=== PATIENT | male | born 1960 | race African-American/Black ===

== ENCOUNTER 2020-08-03 05:17 | Observation (INO) | payer MEDICARE, MEDICAID ==
[~2020-08-03] VITALS: Ht 170.1 cm; Wt 59.0 kg
[~2020-08-03 05:17] MED LIST: AMOXICILLIN500 MG PO; CALCIUM 500 + D1 TAB PO; CARAFATE1 G1 PO; CHLORPROMAZINE10 MG PO; CIPRO500 MG PO; ENSURE CLINICA; HYDROCODONE BIT1 T11 PO; IBUPRIN200 MG; LEVAQUIN750 MG PO; MIRALAX17 GM/DOSE PO; MIRALAX17 GM/PACK PO; MULTIPLE VITAMI1 CAP PO; NKHM; PEN-VK500 MG PO; PENICILLIN VK500 MG PO; PROMETHAZINE12.5 MG RC; PROTONIX40 MG PO; REGLAN5 MG PO; SEPTDS PO; VICODIN 5/500 505 MG PO; ZINC220 MG PO
[2020-08-03 05:23] VITALS: BP 128/58
[2020-08-03 06:02] LABS: HEMATOCRIT 43.4 % (42.0-52.0); LYMPH # 0.5 10*3/uL (1.3-4.4); LYMPH % 21.3 % (27.0-41.0); MEAN CELL VOLUME 102.4 fl (80.0-94.0); MEAN CORPUSCULAR HGB 34.7 pg (27.0-31.0); MEAN CORPUSCULAR HGB CONC 33.9 g/dl (33.0-37.0); MEAN PLATELET VOLUME 9.1 fl (9.6-12.3); MONO # 0.3 10*3/uL (0.1-1.0); MONO % 12.2 % (3.0-9.0); NEUT # 1.7 10*3/uL (2.3-7.9); NEUT % 65.7 % (47.0-73.0); PLATELET COUNT AUTOMATED 269 10*3/uL (130-400); RED BLOOD COUNT 4.24 10*6/uL (4.50-5.90); WHITE BLOOD COUNT 2.5 10*3/uL (4.8-10.8)
[2020-08-03 06:07] LABS: BILIRUBIN Negative (Negative); BLOOD Negative (Negative); CLARITY Clear (Clear); COLOR Yellow (Yellow); GLUCOSE Negative (Negative); KETONE 1+ (Negative); LEUKO ESTERASE Trace (Negative); NITRITE Negative (Negative); PH 5.5 (4.5-8.0); SPECIFIC GRAVITY 1.025 (1.001-1.030)
[2020-08-03 06:19] LABS: BACTERIA 4+; EPITHELIAL CELLS 0-2
[2020-08-03 06:27] LABS: ALBUMIN 3.3 gm/dl (3.1-4.5); ALKALINE PHOSPHATASE 103 U/L (45-117); BUN 14 mg/dl (7-24); CHLORIDE 102 mmol/L (98-107); CREATININE 1.12 mg/dL (0.70-1.30); POTASSIUM 3.8 mmol/L (3.5-5.1); SGOT/AST 49 IU/L (3-35); SGPT/ALT 89 U/L (12-78); SODIUM 135 mmol/L (136-145); TOTAL PROTEIN 7.3 gm/dL (6.4-8.2)
[2020-08-03 08:26] VITALS: BP 96/60
[2020-08-03] MEDS ORDERED: THORAZINE100 MG PO (09:28)
[2020-08-03] MEDS ORDERED: PEPCID20 MG PO (09:29)
[2020-08-03] MEDS ORDERED: CARAFATE1 G1 PO (09:29)
[2020-08-03 13:18] VITALS: BP 101/62
[2020-08-03] MEDS ORDERED: CIPRO500 MG PO ×2 (14:46)
== END 2020-08-03 16:54 | disposition home or self-care (01) ==
LOC: ED 05:17 → EDHOLD 07:12
PROVIDERS: Student in an Organized Health Care Education/Training Program; ADMIT Emergency Medicine; ATTEND Emergency Medicine
DX: N39.0 Urinary tract infection, site not specified (principal); R41.82 Altered mental status, unspecified; F79 Unspecified intellectual disabilities; E87.1 Hypo-osmolality and hyponatremia; R73.9 Hyperglycemia, unspecified; R74.01 Elevation of levels of liver transaminase levels; E44.0 Moderate protein-calorie malnutrition; D72.819 Decreased white blood cell count, unspecified; Z98.890 Other specified postprocedural states

== ENCOUNTER 2020-08-08 14:12 | Emergency (ER) | payer MEDICARE, MEDICAID ==
[~2020-08-08 14:12] MED LIST changes: +PEPCID20 MG PO; +THORAZINE100 MG PO
[2020-08-08 14:54] LABS: BASO % 0.2 % (0.0-1.0); EOS % 0.2 % (1.0-4.0); LYMPH # 0.9 10*3/uL (1.3-4.4); LYMPH % 17.7 % (27.0-41.0); MEAN CELL VOLUME 102.3 fl (80.0-94.0); MEAN CORPUSCULAR HGB 34.8 pg (27.0-31.0); MEAN PLATELET VOLUME 8.7 fl (9.6-12.3); MONO # 0.5 10*3/uL (0.1-1.0); MONO % 9.1 % (3.0-9.0); NEUT # 3.6 10*3/uL (2.3-7.9); NEUT % 72.6 % (47.0-73.0); PLATELET COUNT AUTOMATED 401 10*3/uL (130-400); RED BLOOD COUNT 4.69 10*6/uL (4.50-5.90)
[2020-08-08 15:05] LABS: ACT PARTIAL THROMBO TIME 30.8 SECONDS (20.0-32.1)
[2020-08-08 15:08] LABS: ALBUMIN 3.1 gm/dl (3.1-4.5); ALKALINE PHOSPHATASE 118 U/L (45-117); BUN 15 mg/dl (7-24); CHLORIDE 102 mmol/L (98-107); CREATININE 1.28 mg/dL (0.70-1.30); POTASSIUM 3.8 mmol/L (3.5-5.1); SGOT/AST 41 IU/L (3-35); SGPT/ALT 55 U/L (12-78); SODIUM 137 mmol/L (136-145); TOTAL PROTEIN 7.9 gm/dL (6.4-8.2)
[2020-08-08] MEDS ORDERED: AVPAK AZITHROM250 MG PO ×2 (16:05)
== END 2020-08-08 16:35 | disposition home or self-care (01) ==
LOC: ED 14:12
PROVIDERS: Family Medicine
DX: J18.9 Pneumonia, unspecified organism (principal); R79.1 Abnormal coagulation profile; Z20.828 Contact with and (suspected) exposure to other viral communicable diseases; Z88.1 Allergy status to other antibiotic agents; Z79.899 Other long term (current) drug therapy

== ENCOUNTER 2020-10-10 18:08 | Inpatient (IN) | payer MEDICARE, MEDICAID ==
[~2020-10-10] VITALS: Ht 165.1 cm; Wt 49.0 kg
[~2020-10-10 18:08] MED LIST changes: +AVPAK AZITHROM250 MG PO
[2020-10-10 18:17] VITALS: BP 128/88
[2020-10-10 19:46] LABS: BASO % 0.2 % (0.0-1.0); EOS % 0.2 % (1.0-4.0); HEMATOCRIT 48.1 % (42.0-52.0); LYMPH # 1.7 10*3/uL (1.3-4.4); MEAN CELL VOLUME 106.7 fl (80.0-94.0); MEAN CORPUSCULAR HGB CONC 32.8 g/dl (33.0-37.0); MONO # 0.8 10*3/uL (0.1-1.0); MONO % 5.9 % (3.0-9.0); NEUT # 11.5 10*3/uL (2.3-7.9); NEUT % 81.1 % (47.0-73.0); PLATELET COUNT AUTOMATED 441 10*3/uL (130-400); RED BLOOD COUNT 4.51 10*6/uL (4.50-5.90); RED CELL DISTRI WIDTH 14.2 % (0-14.5); WHITE BLOOD COUNT 14.2 10*3/uL (4.8-10.8)
[2020-10-10 20:00] VITALS: BP 102/55
[2020-10-10 20:01] LABS: ALBUMIN 3.1 gm/dl (3.1-4.5); ALKALINE PHOSPHATASE 95 U/L (45-117); BUN 25 mg/dl (7-24); CHLORIDE 107 mmol/L (98-107); CREATININE 1.21 mg/dL (0.70-1.30); LIPASE 83 U/L (73-393); POTASSIUM 4.4 mmol/L (3.5-5.1); SGOT/AST 9 IU/L (3-35); SGPT/ALT 22 U/L (12-78); SODIUM 141 mmol/L (136-145); TOTAL PROTEIN 8.4 gm/dL (6.4-8.2)
[2020-10-10 20:14] LABS: BILIRUBIN Negative (Negative); BLOOD Negative (Negative); CLARITY Clear (Clear); COLOR Yellow (Yellow); GLUCOSE Negative (Negative); KETONE Trace (Negative); LEUKO ESTERASE Trace (Negative); NITRITE Negative (Negative); SPECIFIC GRAVITY >= 1.030 (1.001-1.030)
[2020-10-10 20:33] LABS: BACTERIA 1+; MUCOUS 1+; RBC 16-20 rbc/hpf (0-2)
[2020-10-10 22:21] VITALS: BP 112/71
[2020-10-10] MEDS ORDERED: PROTONIX IV40 MG IV (22:42)
[2020-10-10] MEDS ORDERED: CARAFATE1 G1 PO (22:43)
[2020-10-10 23:00] VITALS: BP 102/55
[2020-10-11 06:34] LABS: BASO % 0.2 % (0.0-1.0); EOS # 0.1 10*3/uL (0.0-0.4); EOS % 0.6 % (1.0-4.0); HEMATOCRIT 42.3 % (42.0-52.0); LYMPH % 15.9 % (27.0-41.0); MEAN CELL VOLUME 107.4 fl (80.0-94.0); MEAN CORPUSCULAR HGB CONC 32.6 g/dl (33.0-37.0); MONO # 0.8 10*3/uL (0.1-1.0); MONO % 6.3 % (3.0-9.0); NEUT # 9.3 10*3/uL (2.3-7.9); NEUT % 75.6 % (47.0-73.0); PLATELET COUNT AUTOMATED 442 10*3/uL (130-400); RED BLOOD COUNT 3.94 10*6/uL (4.50-5.90); RED CELL DISTRI WIDTH 14.1 % (0-14.5); WHITE BLOOD COUNT 12.3 10*3/uL (4.8-10.8)
[2020-10-11 07:08] LABS: ALBUMIN 2.5 gm/dl (3.1-4.5); ALKALINE PHOSPHATASE 82 U/L (45-117); BUN 16 mg/dl (7-24); CHLORIDE 109 mmol/L (98-107); CREATININE 1.06 mg/dL (0.70-1.30); FREE T4 0.99 ng/dl (0.76-1.46); POTASSIUM 4.3 mmol/L (3.5-5.1); SGOT/AST 10 IU/L (3-35); SGPT/ALT 16 U/L (12-78); SODIUM 143 mmol/L (136-145)
[2020-10-11 07:35] LABS: VITAMIN D, 25-HYDROXY 35.1 ng/mL (30-100)
[2020-10-11 08:00] VITALS: BP 106/60
[2020-10-11 12:00] VITALS: BP 136/88
[2020-10-11 16:00] VITALS: BP 81/64
[2020-10-11 20:00] VITALS: BP 117/81
[2020-10-12] VITALS: BP 125/65
[2020-10-12 07:02] LABS: BUN 10 mg/dl (7-24); CHLORIDE 106 mmol/L (98-107); CREATININE 0.99 mg/dL (0.70-1.30); SODIUM 142 mmol/L (136-145)
[2020-10-12 07:08] LABS: BASO % 0.3 % (0.0-1.0); EOS # 0.1 10*3/uL (0.0-0.4); EOS % 0.8 % (1.0-4.0); HEMATOCRIT 43.1 % (42.0-52.0); LYMPH % 27.9 % (27.0-41.0); MEAN CELL VOLUME 105.4 fl (80.0-94.0); MEAN CORPUSCULAR HGB 34.7 pg (27.0-31.0); MEAN CORPUSCULAR HGB CONC 32.9 g/dl (33.0-37.0); MONO # 0.6 10*3/uL (0.1-1.0); MONO % 7.6 % (3.0-9.0); NEUT # 4.6 10*3/uL (2.3-7.9); NEUT % 62.8 % (47.0-73.0); PLATELET COUNT AUTOMATED 466 10*3/uL (130-400); RED BLOOD COUNT 4.09 10*6/uL (4.50-5.90); RED CELL DISTRI WIDTH 13.8 % (0-14.5); WHITE BLOOD COUNT 7.3 10*3/uL (4.8-10.8)
[2020-10-12 08:00] VITALS: BP 114/66
[2020-10-12 12:00] VITALS: BP 130/82
[2020-10-12 16:00] VITALS: BP 128/82
[2020-10-12 20:00] VITALS: BP 113/70
[2020-10-13] VITALS: BP 100/65
[2020-10-13 06:39] LABS: BASO % 0.5 % (0.0-1.0); EOS # 0.2 10*3/uL (0.0-0.4); EOS % 2.7 % (1.0-4.0); HEMATOCRIT 44.3 % (42.0-52.0); LYMPH # 2.3 10*3/uL (1.3-4.4); LYMPH % 36.3 % (27.0-41.0); MEAN CELL VOLUME 104.2 fl (80.0-94.0); MEAN CORPUSCULAR HGB 34.4 pg (27.0-31.0); MEAN PLATELET VOLUME 8.7 fl (9.6-12.3); MONO # 0.7 10*3/uL (0.1-1.0); MONO % 10.8 % (3.0-9.0); NEUT # 3.1 10*3/uL (2.3-7.9); NEUT % 48.9 % (47.0-73.0); PLATELET COUNT AUTOMATED 462 10*3/uL (130-400); RED BLOOD COUNT 4.25 10*6/uL (4.50-5.90); RED CELL DISTRI WIDTH 13.6 % (0-14.5); WHITE BLOOD COUNT 6.3 10*3/uL (4.8-10.8)
[2020-10-13 06:58] LABS: BUN 9 mg/dl (7-24); CHLORIDE 104 mmol/L (98-107); CREATININE 1.01 mg/dL (0.70-1.30); POTASSIUM 3.9 mmol/L (3.5-5.1); SODIUM 142 mmol/L (136-145)
[2020-10-13 08:00] VITALS: BP 113/80
[2020-10-13 12:00] VITALS: BP 120/74
[2020-10-13 16:00] VITALS: BP 118/62
[2020-10-13 20:00] VITALS: BP 114/74
[2020-10-14] VITALS: BP 120/88
[2020-10-14 06:22] LABS: BUN 9 mg/dl (7-24); CHLORIDE 106 mmol/L (98-107); POTASSIUM 3.6 mmol/L (3.5-5.1); SODIUM 141 mmol/L (136-145)
[2020-10-14 06:30] LABS: BASO % 0.6 % (0.0-1.0); EOS # 0.2 10*3/uL (0.0-0.4); EOS % 2.8 % (1.0-4.0); HEMATOCRIT 44.3 % (42.0-52.0); LYMPH # 2.4 10*3/uL (1.3-4.4); LYMPH % 33.8 % (27.0-41.0); MEAN CELL VOLUME 102.3 fl (80.0-94.0); MEAN CORPUSCULAR HGB 34.6 pg (27.0-31.0); MEAN CORPUSCULAR HGB CONC 33.9 g/dl (33.0-37.0); MEAN PLATELET VOLUME 8.6 fl (9.6-12.3); MONO # 0.7 10*3/uL (0.1-1.0); MONO % 9.6 % (3.0-9.0); NEUT # 3.8 10*3/uL (2.3-7.9); NEUT % 52.6 % (47.0-73.0); PLATELET COUNT AUTOMATED 492 10*3/uL (130-400); RED BLOOD COUNT 4.33 10*6/uL (4.50-5.90); RED CELL DISTRI WIDTH 13.4 % (0-14.5); WHITE BLOOD COUNT 7.1 10*3/uL (4.8-10.8)
[2020-10-14 08:00] VITALS: BP 100/85
[2020-10-14 12:00] VITALS: BP 110/67
[2020-10-14 16:00] VITALS: BP 118/89
[2020-10-15] VITALS: BP 130/63
[2020-10-15 08:00] VITALS: BP 135/76
[2020-10-15 12:00] VITALS: BP 142/83
[2020-10-15 16:00] VITALS: BP 172/80
[2020-10-15 20:00] VITALS: BP 131/77
[2020-10-16] VITALS (9 sets, daily range): BP systolic 85–151; BP diastolic 46–90
[2020-10-17] VITALS: BP 143/89
[2020-10-17 06:11] LABS: BASO % 0.7 % (0.0-1.0); EOS # 0.2 10*3/uL (0.0-0.4); EOS % 4.4 % (1.0-4.0); HEMATOCRIT 44.6 % (42.0-52.0); LYMPH # 1.8 10*3/uL (1.3-4.4); LYMPH % 45.4 % (27.0-41.0); MEAN CELL VOLUME 101.8 fl (80.0-94.0); MEAN CORPUSCULAR HGB 34.2 pg (27.0-31.0); MEAN CORPUSCULAR HGB CONC 33.6 g/dl (33.0-37.0); MEAN PLATELET VOLUME 8.3 fl (9.6-12.3); MONO # 0.4 10*3/uL (0.1-1.0); MONO % 10.4 % (3.0-9.0); NEUT # 1.6 10*3/uL (2.3-7.9); NEUT % 38.9 % (47.0-73.0); PLATELET COUNT AUTOMATED 480 10*3/uL (130-400); RED BLOOD COUNT 4.38 10*6/uL (4.50-5.90); RED CELL DISTRI WIDTH 13.3 % (0-14.5); WHITE BLOOD COUNT 4.1 10*3/uL (4.8-10.8)
[2020-10-17 06:45] LABS: BUN 10 mg/dl (7-24); CHLORIDE 105 mmol/L (98-107); CREATININE 1.11 mg/dL (0.70-1.30); POTASSIUM 4.1 mmol/L (3.5-5.1); SODIUM 139 mmol/L (136-145)
[2020-10-17 08:00] VITALS: BP 108/73
[2020-10-17 12:00] VITALS: BP 120/83
[2020-10-17] MEDS ORDERED: AMOXICILLIN500 M2 PO ×2 (14:48)
== END 2020-10-17 16:19 | disposition home or self-care (01) | DRG 871 ==
LOC: ED 18:08 → EDHOLD 21:59 → 5E 21:59
PROVIDERS: Internal Medicine; Physician Assistant; ADMIT Student in an Organized Health Care Education/Training Program; ATTEND Student in an Organized Health Care Education/Training Program
PROC: BD1BYZZ Fluoroscopy of Mouth/Oropharynx using Other Contrast (ICD-10-PCS; principal; 2020-10-12)
PROC: B24BZZ4 Ultrasonography of Heart with Aorta, Transesophageal (ICD-10-PCS; 2020-10-16)
DX: A41.81 Sepsis due to Enterococcus (principal); E43 Unspecified severe protein-calorie malnutrition; N30.01 Acute cystitis with hematuria; Z68.1 Body mass index [BMI] 19.9 or less, adult; D64.9 Anemia, unspecified; R07.9 Chest pain, unspecified; E86.0 Dehydration; K44.9 Diaphragmatic hernia without obstruction or gangrene; R73.9 Hyperglycemia, unspecified; D47.3 Essential (hemorrhagic) thrombocythemia; K21.9 Gastro-esophageal reflux disease without esophagitis; Z88.1 Allergy status to other antibiotic agents; Z79.899 Other long term (current) drug therapy

== ENCOUNTER 2020-11-03 13:53 | Inpatient (IN) | payer MEDICARE, MEDICAID ==
[~2020-11-03] VITALS: Ht 152.4 cm; Wt 47.9 kg
[~2020-11-03 13:53] MED LIST changes: +AMOXICILLIN500 M2 PO; +PROTONIX IV40 MG IV
[2020-11-03 14:02] VITALS: BP 125/81
[2020-11-03 14:51] LABS: BASO % 0.2 % (0.0-1.0); EOS % 0.2 % (1.0-4.0); HEMATOCRIT 49.8 % (42.0-52.0); LYMPH % 10.9 % (27.0-41.0); MEAN CELL VOLUME 106.9 fl (80.0-94.0); MEAN CORPUSCULAR HGB 34.3 pg (27.0-31.0); MEAN CORPUSCULAR HGB CONC 32.1 g/dl (33.0-37.0); MEAN PLATELET VOLUME 8.6 fl (9.6-12.3); MONO % 5.7 % (3.0-9.0); NEUT # 14.8 10*3/uL (2.3-7.9); NEUT % 82.6 % (47.0-73.0); PLATELET COUNT AUTOMATED 576 10*3/uL (130-400); RED BLOOD COUNT 4.66 10*6/uL (4.50-5.90); RED CELL DISTRI WIDTH 14.8 % (0-14.5); WHITE BLOOD COUNT 17.9 10*3/uL (4.8-10.8)
[2020-11-03 15:09] LABS: ALBUMIN 3.2 gm/dl (3.1-4.5); ALKALINE PHOSPHATASE 115 U/L (45-117); BUN 21 mg/dl (7-24); CHLORIDE 105 mmol/L (98-107); CREATININE 1.34 mg/dL (0.70-1.30); POTASSIUM 4.3 mmol/L (3.5-5.1); SGOT/AST 14 IU/L (3-35); SGPT/ALT 28 U/L (12-78); SODIUM 143 mmol/L (136-145); TOTAL PROTEIN 8.6 gm/dL (6.4-8.2)
[2020-11-03 15:10] LABS: TROPONIN I < 0.015 ng/ml (<0.045)
[2020-11-03 16:25] VITALS: BP 126/74
[2020-11-03 18:10] VITALS: BP 104/80
[2020-11-03 19:14] VITALS: BP 120/72
[2020-11-04] VITALS: BP 106/58
[2020-11-04 06:16] LABS: BASO % 0.2 % (0.0-1.0); EOS # 0.4 10*3/uL (0.0-0.4); EOS % 2.8 % (1.0-4.0); HEMATOCRIT 40.8 % (42.0-52.0); LYMPH # 1.7 10*3/uL (1.3-4.4); MEAN CELL VOLUME 105.7 fl (80.0-94.0); MEAN CORPUSCULAR HGB 33.9 pg (27.0-31.0); MEAN CORPUSCULAR HGB CONC 32.1 g/dl (33.0-37.0); MEAN PLATELET VOLUME 8.9 fl (9.6-12.3); MONO # 0.9 10*3/uL (0.1-1.0); MONO % 6.8 % (3.0-9.0); PLATELET COUNT AUTOMATED 490 10*3/uL (130-400); RED BLOOD COUNT 3.86 10*6/uL (4.50-5.90); RED CELL DISTRI WIDTH 14.8 % (0-14.5)
[2020-11-04 06:26] LABS: BUN 18 mg/dl (7-24); CHLORIDE 111 mmol/L (98-107); CREATININE 1.21 mg/dL (0.70-1.30); POTASSIUM 4.4 mmol/L (3.5-5.1); SODIUM 145 mmol/L (136-145)
[2020-11-04 08:00] VITALS: BP 124/60
[2020-11-04 12:00] VITALS: BP 134/62
[2020-11-04 16:00] VITALS: BP 113/77
[2020-11-04 20:00] VITALS: BP 98/69
[2020-11-05 06:19] LABS: BUN 12 mg/dl (7-24); CHLORIDE 109 mmol/L (98-107); CREATININE 1.12 mg/dL (0.70-1.30); SODIUM 141 mmol/L (136-145)
[2020-11-05 06:28] LABS: BASO % 0.4 % (0.0-1.0); EOS # 0.5 10*3/uL (0.0-0.4); EOS % 5.9 % (1.0-4.0); HEMATOCRIT 39.4 % (42.0-52.0); LYMPH # 1.9 10*3/uL (1.3-4.4); LYMPH % 22.5 % (27.0-41.0); MEAN CELL VOLUME 105.3 fl (80.0-94.0); MEAN CORPUSCULAR HGB 33.7 pg (27.0-31.0); MEAN PLATELET VOLUME 9.1 fl (9.6-12.3); MONO # 0.6 10*3/uL (0.1-1.0); MONO % 7.1 % (3.0-9.0); NEUT # 5.4 10*3/uL (2.3-7.9); NEUT % 63.7 % (47.0-73.0); PLATELET COUNT AUTOMATED 487 10*3/uL (130-400); RED BLOOD COUNT 3.74 10*6/uL (4.50-5.90); RED CELL DISTRI WIDTH 14.6 % (0-14.5); WHITE BLOOD COUNT 8.4 10*3/uL (4.8-10.8)
[2020-11-05 08:00] VITALS: BP 116/75
[2020-11-05 12:00] VITALS: BP 113/64
[2020-11-05 16:00] VITALS: BP 112/75
[2020-11-05 20:00] VITALS: BP 132/86
[2020-11-06] VITALS: BP 119/75
[2020-11-06 06:44] LABS: BASO % 0.3 % (0.0-1.0); EOS # 0.3 10*3/uL (0.0-0.4); EOS % 3.8 % (1.0-4.0); HEMATOCRIT 40.9 % (42.0-52.0); LYMPH # 1.6 10*3/uL (1.3-4.4); LYMPH % 21.9 % (27.0-41.0); MEAN CELL VOLUME 102.5 fl (80.0-94.0); MEAN CORPUSCULAR HGB 34.1 pg (27.0-31.0); MEAN CORPUSCULAR HGB CONC 33.3 g/dl (33.0-37.0); MEAN PLATELET VOLUME 8.9 fl (9.6-12.3); MONO # 0.5 10*3/uL (0.1-1.0); MONO % 7.5 % (3.0-9.0); NEUT # 4.7 10*3/uL (2.3-7.9); NEUT % 66.2 % (47.0-73.0); PLATELET COUNT AUTOMATED 488 10*3/uL (130-400); RED BLOOD COUNT 3.99 10*6/uL (4.50-5.90); WHITE BLOOD COUNT 7.1 10*3/uL (4.8-10.8)
[2020-11-06 06:48] LABS: BUN 11 mg/dl (7-24); CHLORIDE 104 mmol/L (98-107); CREATININE 1.09 mg/dL (0.70-1.30); POTASSIUM 3.6 mmol/L (3.5-5.1); SODIUM 142 mmol/L (136-145)
[2020-11-06 08:33] VITALS: BP 141/79
[2020-11-06 12:52] VITALS: BP 136/88
[2020-11-06] MEDS ORDERED: AUGMENTIN 875-875 MG PO (13:40)
[2020-11-06] MEDS ORDERED: Nystatin 100,000 UNI PO (13:40)
[2020-11-06] MEDS ORDERED: OMEPRAZOLE40 MG PO (14:22)
== END 2020-11-06 14:29 | disposition home or self-care (01) | DRG 871 ==
LOC: ED 13:53 → EDHOLD 18:18 → 5E 18:18
PROVIDERS: Emergency Medicine; Student in an Organized Health Care Education/Training Program; ADMIT Emergency Medicine; ATTEND Emergency Medicine
DX: A41.9 Sepsis, unspecified organism (principal); N17.0 Acute kidney failure with tubular necrosis; J69.0 Pneumonitis due to inhalation of food and vomit; E87.2 Acidosis; T17.908A Unspecified foreign body in respiratory tract, part unspecified causing other injury, initial encounter; D47.3 Essential (hemorrhagic) thrombocythemia; R73.9 Hyperglycemia, unspecified; E86.0 Dehydration; E83.41 Hypermagnesemia; F79 Unspecified intellectual disabilities; K21.9 Gastro-esophageal reflux disease without esophagitis; X58.XXXA Exposure to other specified factors, initial encounter; Y93.89 Activity, other specified; Y99.8 Other external cause status; Y92.89 Other specified places as the place of occurrence of the external cause; Z88.8 Allergy status to other drugs, medicaments and biological substances

== ENCOUNTER 2020-11-25 16:22 | Emergency (ER) | payer MEDICARE, MEDICAID ==
[~2020-11-25] VITALS: Ht 152.4 cm; Wt 47.6 kg
[~2020-11-25 16:22] MED LIST changes: +AUGMENTIN 875-875 MG PO; +Nystatin 100,000 UNI PO; +OMEPRAZOLE40 MG PO
[2020-11-25 17:12] LABS: BASO % 0.2 % (0.0-1.0); EOS # 0.1 10*3/uL (0.0-0.4); EOS % 0.7 % (1.0-4.0); LYMPH # 2.2 10*3/uL (1.3-4.4); MEAN CELL VOLUME 101.4 fl (80.0-94.0); MEAN CORPUSCULAR HGB 33.5 pg (27.0-31.0); MEAN PLATELET VOLUME 9.3 fl (9.6-12.3); MONO # 0.9 10*3/uL (0.1-1.0); MONO % 6.7 % (3.0-9.0); NEUT # 9.5 10*3/uL (2.3-7.9); NEUT % 75.2 % (47.0-73.0); PLATELET COUNT AUTOMATED 510 10*3/uL (130-400); RED BLOOD COUNT 4.24 10*6/uL (4.50-5.90); RED CELL DISTRI WIDTH 14.6 % (0-14.5); WHITE BLOOD COUNT 12.7 10*3/uL (4.8-10.8)
[2020-11-25 17:33] LABS: ACT PARTIAL THROMBO TIME 25.1 SECONDS (20.0-32.1)
[2020-11-25 17:47] LABS: ALBUMIN 2.8 gm/dl (3.1-4.5); ALKALINE PHOSPHATASE 103 U/L (45-117); BUN 23 mg/dl (7-24); CHLORIDE 103 mmol/L (98-107); CREATININE 1.31 mg/dL (0.70-1.30); LIPASE 111 U/L (73-393); POTASSIUM 3.6 mmol/L (3.5-5.1); SGOT/AST 19 IU/L (3-35); SGPT/ALT 32 U/L (12-78); SODIUM 143 mmol/L (136-145); TOTAL PROTEIN 7.4 gm/dL (6.4-8.2)
[2020-11-25 17:49] LABS: TROPONIN I < 0.015 ng/ml (<0.045)
[2020-11-25] MEDS ORDERED: Ondansetron4 MG PO (18:39)
[2020-11-25] MEDS ORDERED: REGLAN5 MG PO (18:39)
== END 2020-11-25 19:41 | disposition home or self-care (01) ==
LOC: ED 16:22
PROVIDERS: Nurse Practitioner Family
DX: E86.0 Dehydration (principal); T36.4X5A Adverse effect of tetracyclines, initial encounter; R11.2 Nausea with vomiting, unspecified; Z98.890 Other specified postprocedural states; Z79.899 Other long term (current) drug therapy; Z88.1 Allergy status to other antibiotic agents; Y92.89 Other specified places as the place of occurrence of the external cause

== ENCOUNTER 2021-08-01 17:57 | Emergency (ER) | payer OTHER, MEDICAID ==
[~2021-08-01] VITALS: Ht 152.4 cm; Wt 40.8 kg
[~2021-08-01 17:57] MED LIST changes: +Ondansetron4 MG PO
[2021-08-01] MEDS ORDERED: ONDANSETRON HYDR4 MG PO (18:32)
[2021-08-01] MEDS ORDERED: FAMOTIDINE20 M1 PO (18:33)
[2021-08-01] MEDS ORDERED: ESOMEPRAZOLE MA40 M1 PO (18:33)
[2021-08-01] MEDS ORDERED: VITAMIN B-1100 M1 PO (18:34)
== END 2021-08-01 19:28 | disposition left against medical advice (07) ==
LOC: ED 17:57
DX: R63.4 Abnormal weight loss (principal); R63.0 Anorexia; Z53.21 Procedure and treatment not carried out due to patient leaving prior to being seen by health care provider

== ENCOUNTER 2021-08-29 18:12 | Inpatient (IN) | payer OTHER, MEDICAID ==
[~2021-08-29] VITALS: Ht 152 cm; Wt 40.1 kg
[~2021-08-29 18:12] MED LIST changes: +ESOMEPRAZOLE MA40 M1 PO; +FAMOTIDINE20 M1 PO; +ONDANSETRON HYDR4 MG PO; +VITAMIN B-1100 M1 PO
[2021-08-29 18:16] VITALS: BP 122/77
[2021-08-29 18:33] LABS: BASO % 0.2 % (0.0-1.0); EOS % 0.2 % (1.0-4.0); HEMATOCRIT 41.9 % (42.0-52.0); LYMPH # 0.8 10*3/uL (1.3-4.4); LYMPH % 6.6 % (27.0-41.0); MEAN CELL VOLUME 101.2 fl (80.0-94.0); MEAN CORPUSCULAR HGB 33.6 pg (27.0-31.0); MEAN CORPUSCULAR HGB CONC 33.2 g/dl (33.0-37.0); MEAN PLATELET VOLUME 9.4 fl (9.6-12.3); MONO # 0.5 10*3/uL (0.1-1.0); MONO % 3.9 % (3.0-9.0); NEUT # 10.6 10*3/uL (2.3-7.9); NEUT % 88.8 % (47.0-73.0); PLATELET COUNT AUTOMATED 419 10*3/uL (130-400); RED BLOOD COUNT 4.14 10*6/uL (4.50-5.90); RED CELL DISTRI WIDTH 13.7 % (0-14.5); WHITE BLOOD COUNT 11.9 10*3/uL (4.8-10.8)
[2021-08-29 18:44] LABS: ACT PARTIAL THROMBO TIME 27.3 SECONDS (20.0-32.1)
[2021-08-29 18:50] LABS: ALKALINE PHOSPHATASE 81 U/L (45-117); BUN 16 mg/dl (7-24); CHLORIDE 104 mmol/L (98-107); SGOT/AST 15 IU/L (3-35); SGPT/ALT 21 U/L (12-78); SODIUM 139 mmol/L (136-145); TOTAL PROTEIN 7.3 gm/dL (6.4-8.2)
[2021-08-30] VITALS (8 sets, daily range): BP systolic 96–113; BP diastolic 55–69
[2021-08-30 01:32] LABS: BILIRUBIN Negative (Negative); BLOOD Trace-Lysed (Negative); CLARITY Clear (Clear); COLOR Yellow (Yellow); GLUCOSE Negative (Negative); KETONE Negative (Negative); LEUKO ESTERASE Negative (Negative); NITRITE Negative (Negative); SPECIFIC GRAVITY 1.005 (1.001-1.030); UROBILINOGEN 0.2 E.U./dl (0.0-1.0)
[2021-08-30 05:21] LABS: BUN 12 mg/dl (7-24); CHLORIDE 107 mmol/L (98-107); CHOLESTEROL 137 mg/dL (<200); CREATININE 0.92 mg/dL (0.70-1.30); POTASSIUM 3.8 mmol/L (3.5-5.1); SGOT/AST 12 IU/L (3-35); SGPT/ALT 17 U/L (12-78); SODIUM 141 mmol/L (136-145)
[2021-08-30 05:28] LABS: ALKALINE PHOSPHATASE 73 U/L (45-117); FREE T4 1.08 ng/dl (0.76-1.46); LDL CHOLESTEROL 57 mg/dL (9-159); TOTAL PROTEIN 6.7 gm/dL (6.4-8.2); TRIGLYCERIDES 43 mg/dl (<150)
[2021-08-30 06:25] LABS: BASO % 0.2 % (0.0-1.0); EOS % 0.1 % (1.0-4.0); HEMATOCRIT 36.9 % (42.0-52.0); LYMPH # 1.2 10*3/uL (1.3-4.4); LYMPH % 9.3 % (27.0-41.0); MEAN CELL VOLUME 101.4 fl (80.0-94.0); MEAN CORPUSCULAR HGB 33.8 pg (27.0-31.0); MEAN CORPUSCULAR HGB CONC 33.3 g/dl (33.0-37.0); MONO # 0.9 10*3/uL (0.1-1.0); MONO % 7.1 % (3.0-9.0); NEUT # 10.8 10*3/uL (2.3-7.9); PLATELET COUNT AUTOMATED 425 10*3/uL (130-400); RED BLOOD COUNT 3.64 10*6/uL (4.50-5.90); RED CELL DISTRI WIDTH 13.9 % (0-14.5); WHITE BLOOD COUNT 12.9 10*3/uL (4.8-10.8)
[2021-08-30 06:40] LABS: VITAMIN D, 25-HYDROXY 26.1 ng/mL (30-100)
[2021-08-30] MEDS ORDERED: COLACE100 MG PO (17:21)
[2021-08-30] MEDS ORDERED: BENGAY GREASELE57 GM T (17:22)
[2021-08-31] VITALS: BP 107/56
[2021-08-31 06:40] LABS: BASO % 0.2 % (0.0-1.0); EOS # 0.2 10*3/uL (0.0-0.4); EOS % 2.6 % (1.0-4.0); HEMATOCRIT 36.6 % (42.0-52.0); LYMPH # 1.5 10*3/uL (1.3-4.4); LYMPH % 17.2 % (27.0-41.0); MEAN CORPUSCULAR HGB 33.6 pg (27.0-31.0); MEAN CORPUSCULAR HGB CONC 33.6 g/dl (33.0-37.0); MEAN PLATELET VOLUME 9.4 fl (9.6-12.3); MONO # 0.8 10*3/uL (0.1-1.0); MONO % 9.2 % (3.0-9.0); NEUT # 6.1 10*3/uL (2.3-7.9); NEUT % 69.8 % (47.0-73.0); PLATELET COUNT AUTOMATED 432 10*3/uL (130-400); RED BLOOD COUNT 3.66 10*6/uL (4.50-5.90); RED CELL DISTRI WIDTH 13.5 % (0-14.5); WHITE BLOOD COUNT 8.7 10*3/uL (4.8-10.8)
[2021-08-31 06:47] LABS: ALKALINE PHOSPHATASE 75 U/L (45-117); BUN 10 mg/dl (7-24); CHLORIDE 107 mmol/L (98-107); CREATININE 0.89 mg/dL (0.70-1.30); POTASSIUM 3.6 mmol/L (3.5-5.1); SGOT/AST 14 IU/L (3-35); SGPT/ALT 17 U/L (12-78); SODIUM 140 mmol/L (136-145); TOTAL PROTEIN 6.6 gm/dL (6.4-8.2)
[2021-08-31 07:25] VITALS: BP 101/76
[2021-08-31 12:00] VITALS: BP 106/52
[2021-08-31 16:00] VITALS: BP 107/56
[2021-08-31 20:00] VITALS: BP 99/61
[2021-09-01] VITALS: BP 92/52
[2021-09-01 06:26] LABS: BASO % 0.5 % (0.0-1.0); EOS # 0.2 10*3/uL (0.0-0.4); EOS % 3.8 % (1.0-4.0); HEMATOCRIT 36.6 % (42.0-52.0); LYMPH # 1.4 10*3/uL (1.3-4.4); LYMPH % 24.8 % (27.0-41.0); MEAN CELL VOLUME 99.2 fl (80.0-94.0); MEAN CORPUSCULAR HGB 33.3 pg (27.0-31.0); MEAN CORPUSCULAR HGB CONC 33.6 g/dl (33.0-37.0); MEAN PLATELET VOLUME 9.3 fl (9.6-12.3); MONO # 0.6 10*3/uL (0.1-1.0); NEUT # 3.3 10*3/uL (2.3-7.9); NEUT % 60.5 % (47.0-73.0); PLATELET COUNT AUTOMATED 459 10*3/uL (130-400); RED BLOOD COUNT 3.69 10*6/uL (4.50-5.90); RED CELL DISTRI WIDTH 13.4 % (0-14.5); WHITE BLOOD COUNT 5.5 10*3/uL (4.8-10.8)
[2021-09-01 06:49] LABS: BUN 11 mg/dl (7-24); CHLORIDE 108 mmol/L (98-107); CREATININE 0.95 mg/dL (0.70-1.30); POTASSIUM 3.6 mmol/L (3.5-5.1); SODIUM 141 mmol/L (136-145)
[2021-09-01 08:00] VITALS: BP 100/65
[2021-09-01 12:00] VITALS: BP 66/53
[2021-09-01 12:37] VITALS: BP 90/52
[2021-09-01 16:00] VITALS: BP 103/59
[2021-09-01 20:00] VITALS: BP 110/67
[2021-09-02] VITALS: BP 108/66
[2021-09-02 06:22] LABS: CHLORIDE 111 mmol/L (98-107); POTASSIUM 3.6 mmol/L (3.5-5.1); SODIUM 142 mmol/L (136-145)
[2021-09-02 06:28] LABS: BASO % 0.2 % (0.0-1.0); EOS # 0.2 10*3/uL (0.0-0.4); EOS % 3.7 % (1.0-4.0); HEMATOCRIT 36.4 % (42.0-52.0); LYMPH # 1.3 10*3/uL (1.3-4.4); LYMPH % 32.8 % (27.0-41.0); MEAN CELL VOLUME 98.1 fl (80.0-94.0); MEAN CORPUSCULAR HGB 32.3 pg (27.0-31.0); MEAN PLATELET VOLUME 9.1 fl (9.6-12.3); MONO # 0.5 10*3/uL (0.1-1.0); MONO % 11.6 % (3.0-9.0); NEUT # 2.1 10*3/uL (2.3-7.9); NEUT % 51.5 % (47.0-73.0); PLATELET COUNT AUTOMATED 494 10*3/uL (130-400); RED BLOOD COUNT 3.71 10*6/uL (4.50-5.90); RED CELL DISTRI WIDTH 13.2 % (0-14.5); WHITE BLOOD COUNT 4.1 10*3/uL (4.8-10.8)
[2021-09-02 06:29] LABS: BUN 9 mg/dl (7-24)
[2021-09-02 08:00] VITALS: BP 98/64
[2021-09-02 12:00] VITALS: BP 118/68
[2021-09-02 16:00] VITALS: BP 121/83
[2021-09-02 20:00] VITALS: BP 100/64
[2021-09-03] VITALS: BP 101/62
[2021-09-03 06:34] LABS: BUN 9 mg/dl (7-24); CHLORIDE 107 mmol/L (98-107); CREATININE 0.84 mg/dL (0.70-1.30); POTASSIUM 3.9 mmol/L (3.5-5.1); SODIUM 141 mmol/L (136-145)
[2021-09-03 06:36] LABS: BASO % 0.4 % (0.0-1.0); EOS # 0.1 10*3/uL (0.0-0.4); EOS % 2.4 % (1.0-4.0); HEMATOCRIT 40.3 % (42.0-52.0); LYMPH # 1.6 10*3/uL (1.3-4.4); LYMPH % 34.7 % (27.0-41.0); MEAN CORPUSCULAR HGB 32.7 pg (27.0-31.0); MEAN PLATELET VOLUME 8.9 fl (9.6-12.3); MONO # 0.6 10*3/uL (0.1-1.0); MONO % 13.4 % (3.0-9.0); NEUT # 2.2 10*3/uL (2.3-7.9); NEUT % 48.7 % (47.0-73.0); PLATELET COUNT AUTOMATED 492 10*3/uL (130-400); RED BLOOD COUNT 4.07 10*6/uL (4.50-5.90); RED CELL DISTRI WIDTH 13.2 % (0-14.5); WHITE BLOOD COUNT 4.6 10*3/uL (4.8-10.8)
[2021-09-03 08:29] VITALS: BP 100/62
[2021-09-03] MEDS ORDERED: METRONIDAZOLE500 M1 PO (10:34)
[2021-09-03] MEDS ORDERED: LEVOFLOXACIN750 M2 PO (10:34)
== END 2021-09-03 12:29 | disposition home or self-care (01) | DRG 871 ==
LOC: ED 18:12 → 4E 23:02 → EDHOLD 23:02 → 4E 08-30 11:27
PROVIDERS: Emergency Medicine; Family Medicine; Internal Medicine; ADMIT Internal Medicine; ATTEND Internal Medicine
PROC: BD1BYZZ Fluoroscopy of Mouth/Oropharynx using Other Contrast (ICD-10-PCS; principal; 2021-08-30)
DX: A41.9 Sepsis, unspecified organism (principal); J69.0 Pneumonitis due to inhalation of food and vomit; E44.0 Moderate protein-calorie malnutrition; Z68.1 Body mass index [BMI] 19.9 or less, adult; Z20.822 Contact with and (suspected) exposure to COVID-19; R26.2 Difficulty in walking, not elsewhere classified; D53.9 Nutritional anemia, unspecified; R73.9 Hyperglycemia, unspecified; D75.839 Thrombocytosis, unspecified; K21.00 Gastro-esophageal reflux disease with esophagitis, without bleeding; Z93.1 Gastrostomy status; Z88.1 Allergy status to other antibiotic agents; Z88.8 Allergy status to other drugs, medicaments and biological substances; Z79.899 Other long term (current) drug therapy

== ENCOUNTER 2021-10-03 20:51 | Emergency (ER) | payer OTHER, MEDICAID ==
[~2021-10-03] VITALS: Wt 39.9 kg
[~2021-10-03 20:51] MED LIST changes: +BENGAY GREASELE57 GM T; +COLACE100 MG PO; +LEVOFLOXACIN750 M2 PO; +METRONIDAZOLE500 M1 PO
[2021-10-06] MEDS ORDERED: METOCLOPRAMIDE H5 M2 PO (01:35)
[2021-10-06] MEDS ORDERED: PROTONIX40 M2 GT (01:36)
[2021-10-06] MEDS ORDERED: Carafate1 GM/10 ML PO (01:40)
[2021-10-09] MEDS ORDERED: DOXYCYCLINE HY100 M3 PO (11:28)
== END 2021-10-03 22:48 | disposition home or self-care (01) ==
LOC: ED 20:51
DX: R05.9 Cough, unspecified (principal)

== ENCOUNTER 2021-11-01 17:07 | Inpatient (IN) | payer OTHER, MEDICAID ==
[~2021-11-01] VITALS: Ht 152 cm; Wt 39.3 kg
[~2021-11-01 17:07] MED LIST changes: +Carafate1 GM/10 ML PO; +DOXYCYCLINE HY100 M3 PO; +METOCLOPRAMIDE H5 M2 PO; +PROTONIX40 M2 GT
[2021-11-01 17:24] VITALS: BP 102/75
[2021-11-01 19:36] VITALS: BP 92/61
[2021-11-01 20:23] VITALS: BP 114/69
[2021-11-01 21:10] LABS: HEMATOCRIT 40.8 % (42.0-52.0); MEAN CELL VOLUME 94.7 fl (80.0-94.0); MEAN CORPUSCULAR HGB 31.8 pg (27.0-31.0); MEAN CORPUSCULAR HGB CONC 33.6 g/dl (33.0-37.0); MEAN PLATELET VOLUME 9.2 fl (9.6-12.3); PLATELET COUNT AUTOMATED 469 10*3/uL (130-400); RED BLOOD COUNT 4.31 10*6/uL (4.50-5.90); RED CELL DISTRI WIDTH 13.7 % (0-14.5); WHITE BLOOD COUNT 17.8 10*3/uL (4.8-10.8)
[2021-11-01 21:18] LABS: MANUAL DIFF REFLEX YES
[2021-11-01 21:28] LABS: ALKALINE PHOSPHATASE 66 U/L (45-117); BUN 19 mg/dl (7-24); CHLORIDE 105 mmol/L (98-107); CREATININE 0.95 mg/dL (0.70-1.30); LIPASE 103 U/L (73-393); POTASSIUM 3.8 mmol/L (3.5-5.1); SGOT/AST 12 IU/L (3-35); SGPT/ALT 14 U/L (12-78); SODIUM 139 mmol/L (136-145); TOTAL PROTEIN 7.1 gm/dL (6.4-8.2)
[2021-11-01 21:32] VITALS: BP 99/71
[2021-11-01 21:36] LABS: PLATELET SUFFICIENCY HIGH (NORMAL); TOTAL CELLS COUNTED 100 #CELLS
[2021-11-01 21:37] LABS: BURR CELLS FEW; STOMATOCYTE FEW; TARGET CELLS FEW
[2021-11-01] MEDS ORDERED: ESOMEPRAZOLE MA40 M1 PO (22:56)
[2021-11-01 23:15] VITALS: BP 110/72; BP 99/67
[2021-11-02] VITALS (8 sets, daily range): BP systolic 71–110; BP diastolic 48–71
[2021-11-02 06:01] LABS: BASO % 0.2 % (0.0-1.0); EOS % 0.2 % (1.0-4.0); HEMATOCRIT 35.2 % (42.0-52.0); LYMPH # 1.5 10*3/uL (1.3-4.4); LYMPH % 9.6 % (27.0-41.0); MEAN CELL VOLUME 96.7 fl (80.0-94.0); MEAN CORPUSCULAR HGB 32.1 pg (27.0-31.0); MEAN CORPUSCULAR HGB CONC 33.2 g/dl (33.0-37.0); MEAN PLATELET VOLUME 9.3 fl (9.6-12.3); MONO % 6.1 % (3.0-9.0); NEUT # 13.1 10*3/uL (2.3-7.9); NEUT % 83.4 % (47.0-73.0); PLATELET COUNT AUTOMATED 398 10*3/uL (130-400); RED BLOOD COUNT 3.64 10*6/uL (4.50-5.90); WHITE BLOOD COUNT 15.7 10*3/uL (4.8-10.8)
[2021-11-02 06:19] LABS: ACT PARTIAL THROMBO TIME 28.4 SECONDS (20.0-32.1)
[2021-11-02 06:23] LABS: BUN 14 mg/dl (7-24); CHLORIDE 106 mmol/L (98-107); SODIUM 141 mmol/L (136-145)
[2021-11-02 06:26] LABS: ALKALINE PHOSPHATASE 59 U/L (45-117); CREATININE 0.74 mg/dL (0.70-1.30); SGOT/AST 14 IU/L (3-35); SGPT/ALT 11 U/L (12-78); TOTAL PROTEIN 6.1 gm/dL (6.4-8.2)
[2021-11-03] VITALS: BP 106/64
[2021-11-03 06:27] LABS: BASO % 0.1 % (0.0-1.0); EOS # 0.1 10*3/uL (0.0-0.4); EOS % 1.2 % (1.0-4.0); HEMATOCRIT 31.9 % (42.0-52.0); LYMPH # 1.1 10*3/uL (1.3-4.4); LYMPH % 11.6 % (27.0-41.0); MEAN CORPUSCULAR HGB 31.9 pg (27.0-31.0); MEAN CORPUSCULAR HGB CONC 32.9 g/dl (33.0-37.0); MEAN PLATELET VOLUME 9.3 fl (9.6-12.3); MONO # 0.8 10*3/uL (0.1-1.0); MONO % 8.4 % (3.0-9.0); NEUT # 7.3 10*3/uL (2.3-7.9); NEUT % 78.5 % (47.0-73.0); PLATELET COUNT AUTOMATED 377 10*3/uL (130-400); RED BLOOD COUNT 3.29 10*6/uL (4.50-5.90); RED CELL DISTRI WIDTH 13.8 % (0-14.5); WHITE BLOOD COUNT 9.2 10*3/uL (4.8-10.8)
[2021-11-03 07:29] LABS: BUN 10 mg/dl (7-24); CHLORIDE 108 mmol/L (98-107); CREATININE 0.72 mg/dL (0.70-1.30); POTASSIUM 3.5 mmol/L (3.5-5.1); SODIUM 143 mmol/L (136-145)
[2021-11-03 08:00] VITALS: BP 91/50
[2021-11-03 12:00] VITALS: BP 95/52
[2021-11-03 16:00] VITALS: BP 92/64
[2021-11-03 20:00] VITALS: BP 96/67
[2021-11-04 01:59] VITALS: BP 98/51
[2021-11-04 06:07] LABS: BASO % 0.3 % (0.0-1.0); EOS # 0.1 10*3/uL (0.0-0.4); EOS % 1.6 % (1.0-4.0); HEMATOCRIT 34.4 % (42.0-52.0); LYMPH # 1.5 10*3/uL (1.3-4.4); LYMPH % 21.2 % (27.0-41.0); MEAN CELL VOLUME 96.6 fl (80.0-94.0); MEAN CORPUSCULAR HGB 31.5 pg (27.0-31.0); MEAN CORPUSCULAR HGB CONC 32.6 g/dl (33.0-37.0); MEAN PLATELET VOLUME 9.2 fl (9.6-12.3); MONO # 0.6 10*3/uL (0.1-1.0); NEUT # 4.7 10*3/uL (2.3-7.9); NEUT % 68.5 % (47.0-73.0); PLATELET COUNT AUTOMATED 398 10*3/uL (130-400); RED BLOOD COUNT 3.56 10*6/uL (4.50-5.90); RED CELL DISTRI WIDTH 13.9 % (0-14.5); WHITE BLOOD COUNT 6.9 10*3/uL (4.8-10.8)
[2021-11-04 06:14] LABS: BUN 10 mg/dl (7-24); CHLORIDE 106 mmol/L (98-107); CREATININE 0.65 mg/dL (0.70-1.30); POTASSIUM 3.4 mmol/L (3.5-5.1); SODIUM 142 mmol/L (136-145)
[2021-11-04 08:00] VITALS: BP 101/68
[2021-11-04 12:00] VITALS: BP 100/68
[2021-11-04 16:00] VITALS: BP 107/65
[2021-11-04 20:00] VITALS: BP 95/61
[2021-11-05] VITALS: BP 109/65
[2021-11-05 05:28] LABS: BUN 9 mg/dl (7-24); CHLORIDE 109 mmol/L (98-107); CREATININE 0.69 mg/dL (0.70-1.30); POTASSIUM 3.7 mmol/L (3.5-5.1); SODIUM 142 mmol/L (136-145)
[2021-11-05 06:13] LABS: BASO % 0.4 % (0.0-1.0); EOS # 0.1 10*3/uL (0.0-0.4); EOS % 2.2 % (1.0-4.0); HEMATOCRIT 35.9 % (42.0-52.0); LYMPH # 1.2 10*3/uL (1.3-4.4); LYMPH % 23.1 % (27.0-41.0); MEAN CELL VOLUME 95.2 fl (80.0-94.0); MEAN CORPUSCULAR HGB 31.8 pg (27.0-31.0); MEAN CORPUSCULAR HGB CONC 33.4 g/dl (33.0-37.0); MEAN PLATELET VOLUME 9.6 fl (9.6-12.3); MONO # 0.4 10*3/uL (0.1-1.0); MONO % 8.7 % (3.0-9.0); NEUT # 3.3 10*3/uL (2.3-7.9); NEUT % 65.4 % (47.0-73.0); PLATELET COUNT AUTOMATED 437 10*3/uL (130-400); RED BLOOD COUNT 3.77 10*6/uL (4.50-5.90); RED CELL DISTRI WIDTH 13.8 % (0-14.5)
[2021-11-05 08:00] VITALS: BP 99/63
[2021-11-05] MEDS ORDERED: LEVOFLOXACIN500 MG PO (10:56)
[2021-11-05 11:46] VITALS: BP 141/83
== END 2021-11-05 12:16 | disposition home or self-care (01) | DRG 871 ==
LOC: ED 17:07 → EDHOLD 22:23 → 4E 22:23
PROVIDERS: Emergency Medicine; Family Medicine; Internal Medicine; ADMIT Internal Medicine; ATTEND Internal Medicine
PROC: 0DJ08ZZ Inspection of Upper Intestinal Tract, Via Natural or Artificial Opening Endoscopic (ICD-10-PCS; principal; 2021-11-02)
DX: A41.9 Sepsis, unspecified organism (principal); J69.0 Pneumonitis due to inhalation of food and vomit; N17.0 Acute kidney failure with tubular necrosis; E43 Unspecified severe protein-calorie malnutrition; E87.2 Acidosis; Z68.1 Body mass index [BMI] 19.9 or less, adult; K21.9 Gastro-esophageal reflux disease without esophagitis; R65.20 Severe sepsis without septic shock; D75.839 Thrombocytosis, unspecified; D53.9 Nutritional anemia, unspecified; R73.9 Hyperglycemia, unspecified; E83.41 Hypermagnesemia; F79 Unspecified intellectual disabilities; K44.9 Diaphragmatic hernia without obstruction or gangrene; R26.2 Difficulty in walking, not elsewhere classified; Z87.19 Personal history of other diseases of the digestive system; Z88.1 Allergy status to other antibiotic agents; Z88.8 Allergy status to other drugs, medicaments and biological substances; Z93.1 Gastrostomy status; Z66 Do not resuscitate

== ENCOUNTER 2021-12-07 13:05 | Emergency (ER) | payer OTHER, MEDICAID ==
[~2021-12-07 13:05] MED LIST changes: +LEVOFLOXACIN500 MG PO
[2021-12-11] MEDS ORDERED: VIBRAMYCIN50 MG/5 ML PEG (14:55)
== END 2021-12-07 13:19 | disposition left against medical advice (07) ==
LOC: ED 13:05
DX: Z53.21 Procedure and treatment not carried out due to patient leaving prior to being seen by health care provider (principal)

== ENCOUNTER → 2021-12-18 | Outpatient (CLI) | payer OTHER, MEDICAID ==
[~2021-12-18] MED LIST changes: +BACLOFEN5 MG PO; +OZOBAX5 MG/5 ML PO; +VIBRAMYCIN50 MG/5 ML PEG
[2021-12-18 11:35] LABS: BASO % 0.8 % (0.0-1.0); EOS # 0.1 10*3/uL (0.0-0.4); EOS % 2.5 % (1.0-4.0); HEMATOCRIT 42.2 % (42.0-52.0); LYMPH # 1.9 10*3/uL (1.3-4.4); LYMPH % 35.3 % (27.0-41.0); MEAN CELL VOLUME 90.9 fl (80.0-94.0); MEAN CORPUSCULAR HGB 29.5 pg (27.0-31.0); MEAN CORPUSCULAR HGB CONC 32.5 g/dl (33.0-37.0); MEAN PLATELET VOLUME 8.9 fl (9.6-12.3); MONO # 0.5 10*3/uL (0.1-1.0); MONO % 9.7 % (3.0-9.0); NEUT # 2.7 10*3/uL (2.3-7.9); NEUT % 51.5 % (47.0-73.0); PLATELET COUNT AUTOMATED 728 10*3/uL (130-400); RED BLOOD COUNT 4.64 10*6/uL (4.50-5.90); RED CELL DISTRI WIDTH 14.6 % (0-14.5); WHITE BLOOD COUNT 5.2 10*3/uL (4.8-10.8)
== END ==
LOC: LAB 11:06
PROVIDERS: ATTEND Internal Medicine
DX: D75.839 Thrombocytosis, unspecified (principal)

== ENCOUNTER 2022-01-08 18:36 | Emergency (ER) | payer OTHER, MEDICAID ==
[~2022-01-08] VITALS: Wt 39.9 kg
[2022-01-08] MEDS ORDERED: NYSTATIN (19:14)
[2022-01-08 22:44] LABS: BASO % 0.4 % (0.0-1.0); EOS # 0.1 10*3/uL (0.0-0.4); EOS % 0.6 % (1.0-4.0); HEMATOCRIT 37.8 % (42.0-52.0); LYMPH # 1.9 10*3/uL (1.3-4.4); LYMPH % 17.7 % (27.0-41.0); MEAN CELL VOLUME 88.9 fl (80.0-94.0); MEAN CORPUSCULAR HGB 30.1 pg (27.0-31.0); MEAN CORPUSCULAR HGB CONC 33.9 g/dl (33.0-37.0); MEAN PLATELET VOLUME 10.5 fl (9.6-12.3); MONO # 0.6 10*3/uL (0.1-1.0); MONO % 5.4 % (3.0-9.0); NEUT # 8.1 10*3/uL (2.3-7.9); NEUT % 75.5 % (47.0-73.0); PLATELET COUNT AUTOMATED 419 10*3/uL (130-400); RED BLOOD COUNT 4.25 10*6/uL (4.50-5.90); RED CELL DISTRI WIDTH 14.9 % (0-14.5); WHITE BLOOD COUNT 10.7 10*3/uL (4.8-10.8)
[2022-01-08 22:57] LABS: ALKALINE PHOSPHATASE 83 U/L (45-117); BUN 16 mg/dl (7-24); CHLORIDE 108 mmol/L (98-107); CREATININE 0.92 mg/dL (0.70-1.30); SGOT/AST 23 IU/L (3-35); SGPT/ALT 17 U/L (12-78); SODIUM 141 mmol/L (136-145); TOTAL PROTEIN 7.4 gm/dL (6.4-8.2)
[2022-01-09] MEDS ORDERED: DIFLUCAN40 MG/1 ML PEG (00:52)
== END 2022-01-09 01:14 | disposition home or self-care (01) ==
LOC: ED 18:36
PROVIDERS: Emergency Medicine
DX: R05.9 Cough, unspecified (principal); B37.0 Candidal stomatitis; E87.5 Hyperkalemia

== ENCOUNTER → 2022-02-21 | Outpatient (CLI) | payer OTHER, MEDICAID ==
[~2022-02-21] MED LIST changes: +DIFLUCAN40 MG/1 ML PEG; +NYSTATIN
== END | disposition home or self-care (01) ==
LOC: US 07:16
PROVIDERS: ATTEND Physician Assistant
DX: K80.80 Other cholelithiasis without obstruction (principal); F79 Unspecified intellectual disabilities; K59.01 Slow transit constipation

== ENCOUNTER 2022-02-23 18:03 | Emergency (ER) | payer OTHER, MEDICAID | END 2022-02-23 20:22 | disposition left against medical advice (07) | LOC: ED 18:03 | DX: Z53.21 Procedure and treatment not carried out due to patient leaving prior to being seen by health care provider (principal) ==

== ENCOUNTER → 2022-03-06 | Outpatient (CLI) | payer OTHER, MEDICAID | END | disposition home or self-care (01) | LOC: CT 09:00 | PROVIDERS: ATTEND Physician Assistant | DX: K20.90 Esophagitis, unspecified without bleeding (principal); K76.0 Fatty (change of) liver, not elsewhere classified; K80.20 Calculus of gallbladder without cholecystitis without obstruction; R63.0 Anorexia; K59.01 Slow transit constipation; F79 Unspecified intellectual disabilities; R10.13 Epigastric pain ==

== ENCOUNTER 2022-04-26 15:19 | Emergency (ER) | payer OTHER, MEDICAID ==
[~2022-04-26] VITALS: Ht 170.1 cm; Wt 45.4 kg
[~2022-04-26 15:19] MED LIST changes: +GAS-X EXTRA ST125 M1 PO; +XARELTO15 M1 PO; +[UNRECOGNIZED DRUG - OTHER] PO
[2022-04-26 16:34] LABS: ALKALINE PHOSPHATASE 68 U/L (45-117); BUN 21 mg/dl (7-24); CHLORIDE 109 mmol/L (98-107); SGOT/AST 12 IU/L (3-35); SGPT/ALT 22 U/L (12-78); SODIUM 143 mmol/L (136-145); TOTAL PROTEIN 8.2 gm/dL (6.4-8.2)
[2022-04-26 17:38] LABS: BASO % 0.3 % (0.0-1.0); EOS % 0.2 % (1.0-4.0); HEMATOCRIT 41.4 % (42.0-52.0); LYMPH # 1.3 10*3/uL (1.3-4.4); MEAN CELL VOLUME 98.1 fl (80.0-94.0); MEAN CORPUSCULAR HGB 31.3 pg (27.0-31.0); MEAN CORPUSCULAR HGB CONC 31.9 g/dl (33.0-37.0); MEAN PLATELET VOLUME 8.7 fl (9.6-12.3); MONO # 0.8 10*3/uL (0.1-1.0); MONO % 7.8 % (3.0-9.0); NEUT # 7.9 10*3/uL (2.3-7.9); NEUT % 78.3 % (47.0-73.0); RED BLOOD COUNT 4.22 10*6/uL (4.50-5.90); RED CELL DISTRI WIDTH 17.1 % (0-14.5); WHITE BLOOD COUNT 10.1 10*3/uL (4.8-10.8)
[2022-04-26 17:45] LABS: PLATELET COUNT AUTOMATED 918 10*3/uL (130-400)
[2022-04-26] MEDS ORDERED: VIBRA-TAB100 MG PEG (19:18)
== END 2022-04-26 19:30 | disposition home or self-care (01) ==
LOC: ED 15:19
PROVIDERS: Student in an Organized Health Care Education/Training Program
DX: T17.928A Food in respiratory tract, part unspecified causing other injury, initial encounter (principal); Z88.1 Allergy status to other antibiotic agents; Z79.899 Other long term (current) drug therapy; Z98.890 Other specified postprocedural states; X58.XXXA Exposure to other specified factors, initial encounter; Y93.89 Activity, other specified; Y92.89 Other specified places as the place of occurrence of the external cause; Y99.8 Other external cause status

== ENCOUNTER 2022-05-20 12:43 | Emergency (ER) | payer OTHER, MEDICAID ==
[~2022-05-20] VITALS: Ht 154.9 cm; Wt 34.1 kg
[~2022-05-20 12:43] MED LIST changes: +VIBRA-TAB100 MG PEG
== END 2022-05-20 15:24 | disposition left against medical advice (07) ==
LOC: ED 12:43
DX: Z53.21 Procedure and treatment not carried out due to patient leaving prior to being seen by health care provider (principal)

== ENCOUNTER 2022-06-08 11:43 | Emergency (ER) | payer OTHER, MEDICAID ==
[~2022-06-08] VITALS: Wt 42.0 kg
[2022-06-08 12:48] LABS: BASO % 0.2 % (0.0-1.0); EOS # 0.1 10*3/uL (0.0-0.4); EOS % 0.9 % (1.0-4.0); HEMATOCRIT 42.8 % (42.0-52.0); LYMPH # 1.9 10*3/uL (1.3-4.4); LYMPH % 21.9 % (27.0-41.0); MEAN CELL VOLUME 93.9 fl (80.0-94.0); MEAN CORPUSCULAR HGB 31.1 pg (27.0-31.0); MEAN CORPUSCULAR HGB CONC 33.2 g/dl (33.0-37.0); MEAN PLATELET VOLUME 9.1 fl (9.6-12.3); MONO # 0.6 10*3/uL (0.1-1.0); MONO % 6.4 % (3.0-9.0); NEUT # 6.2 10*3/uL (2.3-7.9); NEUT % 70.5 % (47.0-73.0); PLATELET COUNT AUTOMATED 501 10*3/uL (130-400); RED BLOOD COUNT 4.56 10*6/uL (4.50-5.90); RED CELL DISTRI WIDTH 15.3 % (0-14.5); WHITE BLOOD COUNT 8.8 10*3/uL (4.8-10.8)
[2022-06-08 13:05] LABS: ALKALINE PHOSPHATASE 77 U/L (45-117); BUN 16 mg/dl (7-24); CHLORIDE 102 mmol/L (98-107); CREATININE 0.92 mg/dL (0.70-1.30); LIPASE 150 U/L (73-393); POTASSIUM 4.1 mmol/L (3.5-5.1); SGPT/ALT 19 U/L (12-78); SODIUM 137 mmol/L (136-145); TOTAL PROTEIN 7.6 gm/dL (6.4-8.2)
== END 2022-06-08 13:29 | disposition home or self-care (01) ==
LOC: ED 11:43
PROVIDERS: Emergency Medicine
DX: Z13.89 Encounter for screening for other disorder (principal); K94.23 Gastrostomy malfunction

== ENCOUNTER 2022-07-03 12:41 | Emergency (ER) | payer OTHER, MEDICAID ==
[~2022-07-03] VITALS: Wt 38.6 kg
[2022-07-03] MEDS ORDERED: DIFLUCAN 10M10 MG/ML GT (13:22)
[2022-07-03] MEDS ORDERED: Nizoral 2%15 GM T (13:22)
[2022-07-07] MEDS ORDERED: LEVOFLOXACIN500 MG PO (07:31)
== END 2022-07-03 13:35 | disposition home or self-care (01) ==
LOC: ED 12:41
DX: B37.49 Other urogenital candidiasis (principal); Z79.899 Other long term (current) drug therapy; Z88.1 Allergy status to other antibiotic agents

== ENCOUNTER 2022-07-06 18:19 | Emergency (ER) | payer OTHER, MEDICAID ==
[~2022-07-06 18:19] MED LIST changes: +DIFLUCAN 10M10 MG/ML GT; +Nizoral 2%15 GM T
[2022-07-06 20:31] LABS: BILIRUBIN 1+ (Negative); BLOOD 3+ (Negative); CLARITY Turbid (Clear); GLUCOSE Trace (Negative); KETONE Trace (Negative); LEUKO ESTERASE 2+ (Negative); NITRITE Positive (Negative); SPECIFIC GRAVITY 1.025 (1.001-1.030); UROBILINOGEN 0.2 E.U./dl (0.0-1.0)
[2022-07-06 20:32] LABS: BASO % 0.3 % (0.0-1.0); EOS # 0.1 10*3/uL (0.0-0.4); EOS % 0.7 % (1.0-4.0); HEMATOCRIT 44.8 % (42.0-52.0); LYMPH # 2.1 10*3/uL (1.3-4.4); LYMPH % 29.6 % (27.0-41.0); MEAN CELL VOLUME 93.5 fl (80.0-94.0); MEAN CORPUSCULAR HGB 31.3 pg (27.0-31.0); MEAN CORPUSCULAR HGB CONC 33.5 g/dl (33.0-37.0); MEAN PLATELET VOLUME 9.2 fl (9.6-12.3); MONO # 0.6 10*3/uL (0.1-1.0); NEUT # 4.3 10*3/uL (2.3-7.9); NEUT % 60.3 % (47.0-73.0); PLATELET COUNT AUTOMATED 518 10*3/uL (130-400); RED BLOOD COUNT 4.79 10*6/uL (4.50-5.90); RED CELL DISTRI WIDTH 16.2 % (0-14.5); WHITE BLOOD COUNT 7.1 10*3/uL (4.8-10.8)
[2022-07-06 20:47] LABS: ALKALINE PHOSPHATASE 82 U/L (46-116); BUN 21 mg/dl (9-23); CHLORIDE 99 mmol/L (98-107); CREATININE 1.08 mg/dL (0.70-1.30); SGPT/ALT 8 U/L (10-49); TOTAL PROTEIN 7.6 gm/dL (6.0-8.0)
[2022-07-06 20:55] LABS: COLOR Red (Yellow); PH >= 9.0 (4.5-8.0)
[2022-07-06 21:12] LABS: BACTERIA 3+; RBC TNTC rbc/hpf (0-2); WBC TNTC wbc/hpf (0-5)
[2022-07-07] MEDS ORDERED: LEVOFLOXACIN500 MG PO ×2 (07:31)
== END 2022-07-07 08:35 | disposition home or self-care (01) ==
LOC: ED 18:19
PROVIDERS: Emergency Medicine
DX: N39.0 Urinary tract infection, site not specified (principal); I10 Essential (primary) hypertension; K21.9 Gastro-esophageal reflux disease without esophagitis; Z88.1 Allergy status to other antibiotic agents; Z79.899 Other long term (current) drug therapy

== ENCOUNTER 2022-07-11 10:42 | Inpatient (IN) | payer OTHER, MEDICAID ==
[~2022-07-11] VITALS: Ht 177.8 cm; Wt 36.8 kg
[2022-07-11 10:45] VITALS: BP 138/78
[2022-07-11 12:08] LABS: BASO % 0.2 % (0.0-1.0); EOS % 0.3 % (1.0-4.0); HEMATOCRIT 39.2 % (42.0-52.0); LYMPH % 12.3 % (27.0-41.0); MEAN CELL VOLUME 93.1 fl (80.0-94.0); MEAN CORPUSCULAR HGB 31.8 pg (27.0-31.0); MEAN CORPUSCULAR HGB CONC 34.2 g/dl (33.0-37.0); MEAN PLATELET VOLUME 9.8 fl (9.6-12.3); MONO # 0.8 10*3/uL (0.1-1.0); MONO % 5.2 % (3.0-9.0); NEUT # 12.9 10*3/uL (2.3-7.9); NEUT % 81.6 % (47.0-73.0); PLATELET COUNT AUTOMATED 423 10*3/uL (130-400); RED BLOOD COUNT 4.21 10*6/uL (4.50-5.90); WHITE BLOOD COUNT 15.8 10*3/uL (4.8-10.8)
[2022-07-11 12:14] LABS: BILIRUBIN Negative (Negative); BLOOD 3+ (Negative); CLARITY Turbid (Clear); COLOR Orange (Yellow); GLUCOSE Negative (Negative); KETONE Trace (Negative); LEUKO ESTERASE 3+ (Negative); NITRITE Negative (Negative); SPECIFIC GRAVITY 1.025 (1.001-1.030)
[2022-07-11 12:29] LABS: PH 8.5 (4.5-8.0)
[2022-07-11 12:35] LABS: BACTERIA 3+
[2022-07-11 12:36] LABS: RBC TNTC rbc/hpf (0-2); WBC TNTC wbc/hpf (0-5)
[2022-07-11 13:06] LABS: ALKALINE PHOSPHATASE 66 U/L (46-116); BUN 16 mg/dl (9-23); CHLORIDE 99 mmol/L (98-107); POTASSIUM 3.9 mmol/L (3.4-5.1); SGPT/ALT 7 U/L (10-49)
[2022-07-11 16:35] VITALS: BP 101/53
[2022-07-11 19:13] VITALS: BP 124/72
[2022-07-11 22:12] VITALS: BP 110/62
[2022-07-12] VITALS (7 sets, daily range): BP systolic 87–101; BP diastolic 17–72
[2022-07-12 07:10] LABS: BASO % 0.1 % (0.0-1.0); EOS # 0.1 10*3/uL (0.0-0.4); EOS % 0.5 % (1.0-4.0); HEMATOCRIT 37.3 % (42.0-52.0); LYMPH % 10.9 % (27.0-41.0); MEAN CELL VOLUME 95.9 fl (80.0-94.0); MEAN CORPUSCULAR HGB 31.6 pg (27.0-31.0); MEAN PLATELET VOLUME 9.6 fl (9.6-12.3); MONO # 0.7 10*3/uL (0.1-1.0); MONO % 7.6 % (3.0-9.0); NEUT # 7.7 10*3/uL (2.3-7.9); NEUT % 80.6 % (47.0-73.0); PLATELET COUNT AUTOMATED 373 10*3/uL (130-400); RED BLOOD COUNT 3.89 10*6/uL (4.50-5.90); RED CELL DISTRI WIDTH 17.2 % (0-14.5); WHITE BLOOD COUNT 9.6 10*3/uL (4.8-10.8)
[2022-07-12 08:17] LABS: BUN 17 mg/dl (9-23); CHLORIDE 101 mmol/L (98-107); POTASSIUM 3.6 mmol/L (3.4-5.1)
[2022-07-13] VITALS: BP 104/74
[2022-07-13 12:00] VITALS: BP 92/60
[2022-07-13 16:00] VITALS: BP 108/61
[2022-07-13 20:00] VITALS: BP 101/68
[2022-07-14] VITALS: BP 92/64
[2022-07-14 08:00] VITALS: BP 115/86
[2022-07-14 12:00] VITALS: BP 159/98
[2022-07-14 16:00] VITALS: BP 100/55
[2022-07-14 20:00] VITALS: BP 122/71
[2022-07-15] VITALS: BP 101/85
[2022-07-15 08:00] VITALS: BP 93/68
[2022-07-15 12:00] VITALS: BP 90/58; BP 98/67
[2022-07-15 16:00] VITALS: BP 92/60
[2022-07-15 20:00] VITALS: BP 116/71
[2022-07-16] VITALS: BP 118/79
[2022-07-16 06:11] LABS: BUN 12 mg/dl (9-23); CHLORIDE 100 mmol/L (98-107); POTASSIUM 3.1 mmol/L (3.4-5.1)
[2022-07-16 06:12] LABS: BASO % 0.6 % (0.0-1.0); EOS % 0.4 % (1.0-4.0); LYMPH # 1.8 10*3/uL (1.3-4.4); LYMPH % 34.5 % (27.0-41.0); MEAN CELL VOLUME 94.8 fl (80.0-94.0); MEAN CORPUSCULAR HGB 30.7 pg (27.0-31.0); MEAN CORPUSCULAR HGB CONC 32.4 g/dl (33.0-37.0); MONO # 0.5 10*3/uL (0.1-1.0); MONO % 9.7 % (3.0-9.0); NEUT # 2.9 10*3/uL (2.3-7.9); NEUT % 54.6 % (47.0-73.0); PLATELET COUNT AUTOMATED 531 10*3/uL (130-400); RED BLOOD COUNT 4.43 10*6/uL (4.50-5.90); RED CELL DISTRI WIDTH 16.5 % (0-14.5); WHITE BLOOD COUNT 5.3 10*3/uL (4.8-10.8)
[2022-07-16 08:00] VITALS: BP 90/55
[2022-07-16 12:00] VITALS: BP 97/50
[2022-07-16] MEDS ORDERED: PHENAZOPYRIDIN100 M1 PEG ×2 (12:07)
[2022-07-16] MEDS ORDERED: METOCLOPRAMIDE H5 M2 PEG ×2 (12:07)
[2022-07-16] MEDS ORDERED: LEVOFLOXACIN750 M2 PO ×2 (12:24)
[2022-07-16 16:00] VITALS: BP 94/67
[2022-07-24] MEDS ORDERED: Carafate1 GM PEG (12:03)
[2022-07-24] MEDS ORDERED: Carafate1 GM/10 ML PEG (12:04)
[2022-07-24] MEDS ORDERED: METOCLOPRAMIDE10 M1 PEG (12:05)
[2022-07-24] MEDS ORDERED: TAMSULOSIN HCL0.4 MG PEG (12:06)
[2022-07-24] MEDS ORDERED: SENNA8.6 MG PO (12:08)
[2022-07-24] MEDS ORDERED: GABAPENTIN100 M2 PO (12:12)
[2022-07-26] MEDS ORDERED: VIBRA-TAB100 MG PEG (11:58)
[2022-07-26] MEDS ORDERED: TAMSULOSIN HCL0.4 MG PEG (11:58)
== END 2022-07-16 18:04 | disposition home or self-care (01) | DRG 871 ==
LOC: ED 10:42 → 4E 15:08 → EDHOLD 15:08 → 4E 07-12 11:06
PROVIDERS: Nurse Practitioner Family; Registered Nurse; ADMIT Internal Medicine; ATTEND Internal Medicine
DX: A41.9 Sepsis, unspecified organism (principal); J15.6 Pneumonia due to other Gram-negative bacteria; E87.20 Acidosis, unspecified; E44.1 Mild protein-calorie malnutrition; E87.1 Hypo-osmolality and hyponatremia; Z68.1 Body mass index [BMI] 19.9 or less, adult; B37.2 Candidiasis of skin and nail; Z20.822 Contact with and (suspected) exposure to COVID-19; R65.20 Severe sepsis without septic shock; Z66 Do not resuscitate; K21.9 Gastro-esophageal reflux disease without esophagitis; F79 Unspecified intellectual disabilities; Z88.1 Allergy status to other antibiotic agents; Z88.8 Allergy status to other drugs, medicaments and biological substances; Z93.1 Gastrostomy status

== ENCOUNTER 2022-07-22 10:56 | Emergency (ER) | payer OTHER, MEDICAID ==
[~2022-07-22] VITALS: Wt 43.1 kg
[~2022-07-22 10:56] MED LIST changes: +METOCLOPRAMIDE H5 M2 PEG; +PHENAZOPYRIDIN100 M1 PEG
[2022-07-24] MEDS ORDERED: Carafate1 GM PEG (12:03)
[2022-07-24] MEDS ORDERED: Carafate1 GM/10 ML PEG (12:04)
[2022-07-24] MEDS ORDERED: METOCLOPRAMIDE10 M1 PEG (12:05)
[2022-07-24] MEDS ORDERED: TAMSULOSIN HCL0.4 MG PEG (12:06)
[2022-07-24] MEDS ORDERED: SENNA8.6 MG PO (12:08)
[2022-07-24] MEDS ORDERED: GABAPENTIN100 M2 PO (12:12)
== END 2022-07-22 11:40 | disposition home or self-care (01) ==
LOC: ED 10:56
DX: T85.598A Other mechanical complication of other gastrointestinal prosthetic devices, implants and grafts, initial encounter (principal); Z88.8 Allergy status to other drugs, medicaments and biological substances; Z88.1 Allergy status to other antibiotic agents; Z98.890 Other specified postprocedural states; Y83.8 Other surgical procedures as the cause of abnormal reaction of the patient, or of later complication, without mention of misadventure at the time of the procedure; Y92.89 Other specified places as the place of occurrence of the external cause

== ENCOUNTER 2022-08-10 11:12 | Inpatient (IN) | payer OTHER, MEDICAID ==
[~2022-08-10] VITALS: Ht 170.2 cm; Wt 38.6 kg
[~2022-08-10 11:12] MED LIST changes: +Carafate1 GM PEG; +Carafate1 GM/10 ML PEG; +GABAPENTIN100 M2 PO; +METOCLOPRAMIDE10 M1 PEG; +SENNA8.6 MG PO; +TAMSULOSIN HCL0.4 MG PEG
[2022-08-10 11:45] VITALS: BP 82/55
[2022-08-10 16:00] VITALS: BP 83/52
[2022-08-10 20:00] VITALS: BP 91/74
[2022-08-11 08:00] VITALS: BP 80/63
[2022-08-11 12:00] VITALS: BP 66/48
[2022-08-11 16:00] VITALS: BP 91/62
[2022-08-12 06:07] LABS: ALKALINE PHOSPHATASE 62 U/L (46-116); BUN 16 mg/dl (9-23); CHLORIDE 107 mmol/L (98-107); POTASSIUM 3.9 mmol/L (3.4-5.1); SGPT/ALT 10 U/L (10-49); TOTAL PROTEIN 5.9 gm/dL (6.0-8.0)
[2022-08-12 06:29] LABS: BASO % 0.2 % (0.0-1.0); EOS % 0.2 % (1.0-4.0); HEMATOCRIT 26.8 % (42.0-52.0); LYMPH % 16.7 % (27.0-41.0); MEAN CORPUSCULAR HGB 31.2 pg (27.0-31.0); MEAN CORPUSCULAR HGB CONC 31.3 g/dl (33.0-37.0); MEAN PLATELET VOLUME 9.8 fl (9.6-12.3); MONO # 0.6 10*3/uL (0.1-1.0); MONO % 9.3 % (3.0-9.0); NEUT # 4.4 10*3/uL (2.3-7.9); NEUT % 73.4 % (47.0-73.0); PLATELET COUNT AUTOMATED 568 10*3/uL (130-400); RED BLOOD COUNT 2.69 10*6/uL (4.50-5.90); RED CELL DISTRI WIDTH 15.9 % (0-14.5)
[2022-08-12 06:37] LABS: MEAN CELL VOLUME 99.6 fl (80.0-94.0)
[2022-08-12 08:00] VITALS: BP 120/61
[2022-08-12 12:00] VITALS: BP 100/56
[2022-08-12 16:00] VITALS: BP 121/71
[2022-08-12] MEDS ORDERED: METOCLOPRAMIDE10 M1 PEG (16:23)
[2022-08-12 17:23] LABS: BILIRUBIN Negative (Negative); BLOOD Negative (Negative); CLARITY Turbid (Clear); COLOR Yellow (Yellow); GLUCOSE Negative (Negative); KETONE 1+ (Negative); LEUKO ESTERASE 3+ (Negative); NITRITE Negative (Negative); SPECIFIC GRAVITY 1.025 (1.001-1.030)
[2022-08-12 17:25] LABS: PH >= 9.0 (4.5-8.0)
[2022-08-12 17:35] LABS: TRIP PHOS CRYSTALS 1+
[2022-08-12 17:36] LABS: BACTERIA 2+
[2022-08-14] MEDS ORDERED: METOCLOPRAMIDE H5 M1 PO (16:58)
== END 2022-08-12 17:10 | DRG 871 ==
LOC: 4E 11:12
PROVIDERS: ADMIT Internal Medicine; ATTEND Internal Medicine
DX: A41.9 Sepsis, unspecified organism (principal); J69.0 Pneumonitis due to inhalation of food and vomit; J96.91 Respiratory failure, unspecified with hypoxia; E46 Unspecified protein-calorie malnutrition; Z68.1 Body mass index [BMI] 19.9 or less, adult; K21.9 Gastro-esophageal reflux disease without esophagitis; I95.9 Hypotension, unspecified; Z93.1 Gastrostomy status; Z51.5 Encounter for palliative care; Z88.1 Allergy status to other antibiotic agents; Z88.8 Allergy status to other drugs, medicaments and biological substances

== ENCOUNTER 2022-08-14 20:11 | Inpatient (IN) | payer OTHER, MEDICAID ==
[~2022-08-14 20:11] MED LIST changes: +METOCLOPRAMIDE H5 M1 PO
[2022-08-15 08:00] VITALS: BP 80/48
[2022-08-15 20:00] VITALS: BP 80/47
[2022-08-16] VITALS: BP 88/62
[2022-08-16 08:00] VITALS: BP 79/52
[2022-08-16 16:00] VITALS: BP 56/44
[2022-08-16 20:00] VITALS: BP 70/43
[2022-08-17] VITALS: BP 77/52
[2022-08-17 20:00] VITALS: BP 82/55
[2022-08-18] VITALS: BP 91/54
[2022-08-18 08:00] VITALS: BP 88/59
[2022-08-18 16:00] VITALS: BP 84/55
[2022-08-18 20:00] VITALS: BP 78/55
[2022-08-19 08:00] VITALS: BP 70/50
== END 2022-08-19 10:37 | DRG 178 ==
LOC: 4E 20:11
PROVIDERS: ADMIT Internal Medicine; ATTEND Internal Medicine
DX: J69.0 Pneumonitis due to inhalation of food and vomit (principal); J96.11 Chronic respiratory failure with hypoxia; R64 Cachexia; Z68.1 Body mass index [BMI] 19.9 or less, adult; R62.7 Adult failure to thrive; Z51.5 Encounter for palliative care; F79 Unspecified intellectual disabilities; K27.9 Peptic ulcer, site unspecified, unspecified as acute or chronic, without hemorrhage or perforation; R29.818 Other symptoms and signs involving the nervous system; R13.19 Other dysphagia; K31.84 Gastroparesis; G24.01 Drug induced subacute dyskinesia